=== PATIENT | female | born 1960 | race Caucasian/White ===

== ENCOUNTER 2021-12-14 13:52 | Outpatient (CLI) | payer MEDICARE, BC, SELFPAY | END 2021-12-14 13:53 | disposition home or self-care (01) | LOC: INJ CL 13:53 | PROVIDERS: PCP Family Medicine; Visit Provider Family Medicine | DX: M54.16 Radiculopathy, lumbar region (principal); M51.36 Other intervertebral disc degeneration, lumbar region | CPT/HCPCS: 62323; J0702; Q9966 ==

== ENCOUNTER 2022-02-12 06:53 | Outpatient (CLI) | payer MEDICARE, BC, SELFPAY | END 2022-02-12 06:54 | disposition home or self-care (01) | PROVIDERS: PCP Family Medicine; Visit Provider Family Medicine | DX: M53.3 Sacrococcygeal disorders, not elsewhere classified (principal) | CPT/HCPCS: 27096; J0702; Q9966 ==

== ENCOUNTER 2022-04-23 06:57 | Outpatient (CLI) | payer MEDICARE, BC, SELFPAY | END 2022-04-23 06:58 | disposition home or self-care (01) | LOC: INJ CL 06:59 | PROVIDERS: PCP Family Medicine; Visit Provider Family Medicine | DX: M53.3 Sacrococcygeal disorders, not elsewhere classified (principal) | CPT/HCPCS: 27096; J0702; Q9966 ==

== ENCOUNTER 2023-02-11 07:03 | Outpatient (CLI) | payer MEDICARE, BC, SELFPAY | END 2023-02-11 07:04 | disposition home or self-care (01) | LOC: INJ CL 07:04 | PROVIDERS: PCP Family Medicine; Visit Provider Family Medicine | DX: M51.36 Other intervertebral disc degeneration, lumbar region (principal); M54.16 Radiculopathy, lumbar region; M53.3 Sacrococcygeal disorders, not elsewhere classified | CPT/HCPCS: 27096; 62323; J0702; Q9966 ==

== ENCOUNTER 2023-07-08 07:11 | Outpatient (CLI) | payer MEDICARE, BC, SELFPAY | END 2023-07-08 07:12 | disposition home or self-care (01) | LOC: INJ CL 07:12 | PROVIDERS: PCP Family Medicine; Visit Provider Family Medicine | DX: M54.16 Radiculopathy, lumbar region (principal); M51.36 Other intervertebral disc degeneration, lumbar region | CPT/HCPCS: 62323; J0702; Q9966 ==

== ENCOUNTER 2023-12-09 07:07 | Outpatient (CLI) | payer MEDICARE, BC, SELFPAY | END 2023-12-09 07:08 | disposition home or self-care (01) | LOC: INJ CL 07:08 | PROVIDERS: PCP Family Medicine; Visit Provider Family Medicine | DX: M54.16 Radiculopathy, lumbar region (principal); M51.36 Other intervertebral disc degeneration, lumbar region | CPT/HCPCS: 62323; J0702; Q9966 ==

== ENCOUNTER 2024-05-18 07:24 | Outpatient (CLI) | payer MEDICARE, BC, SELFPAY | END 2024-05-18 07:25 | disposition home or self-care (01) | LOC: INJ CL 07:26 | PROVIDERS: PCP Family Medicine; Visit Provider Family Medicine | DX: M53.3 Sacrococcygeal disorders, not elsewhere classified (principal) | CPT/HCPCS: 27096; J0702; Q9966 ==

== ENCOUNTER 2024-06-15 07:10 | Outpatient (CLI) | payer MEDICARE, BC, SELFPAY | END 2024-06-15 07:11 | disposition home or self-care (01) | LOC: INJ CL 07:10 | PROVIDERS: PCP Family Medicine; Visit Provider Family Medicine | DX: M54.16 Radiculopathy, lumbar region (principal); M51.369 Other intervertebral disc degeneration, lumbar region without mention of lumbar back pain or lower extremity pain | CPT/HCPCS: 62323; J0702; Q9966 ==

== ENCOUNTER 2024-10-22 06:49 | Outpatient (CLI) | payer MEDICARE, BC, SELFPAY | END 2024-10-22 06:50 | disposition home or self-care (01) | LOC: INJ CL 06:49 | PROVIDERS: PCP Family Medicine; Visit Provider Family Medicine | DX: M53.3 Sacrococcygeal disorders, not elsewhere classified (principal) | CPT/HCPCS: 27096; J0702; Q9966 ==

== ENCOUNTER 2025-01-12 17:35 | Outpatient (CLI) | payer MEDICARE, BC, SELFPAY ==
--- NOTE | 2025-01-12 18:15 | MR_ITS ---
EXAM: MRI EXAMINATION OF THE RIGHT KNEE CLINICAL INFORMATION: Right knee pain. No specific injury. Osteoarthritis. Evaluate articular cartilage. TECHNICAL INFORMATION: Coronal PD and STIR. Axial PD and T2 fat saturation. Sagittal PD and PD fat saturation images acquired. INTERPRETATION: Bones: Minimal subchondral edema signal and cystic change involves the high posterior periphery of the medial femoral condyle. Patchy subchondral cystic changes of the patella. No occult fracture/stress reaction. No evidence for AVN. No other abnormal bone marrow edema pattern is identified. Ligaments and tendons: The medial collateral ligament is intact, without acute sprain or tear. The iliotibial band, fibular collateral ligament, biceps femoris tendon and popliteus tendon all are intact. The anterior cruciate ligament is intact without acute sprain or tear. The posterior cruciate ligament is intact. Extensor Mechanism: The patellar and quadriceps tendons are intact. The medial and lateral retinacula are intact. Knee Joint: There is no knee joint effusion. There is a slender small to moderate-sized popliteal cyst. There is no discrete loose body seen within the joint. Medial Compartment: There is undersurface tearing identified involving the body and posterior horn medial meniscus. No displaced flap fragment or parameniscal cyst. There is no focal chondral defect. Grade II to III chondromalacia involves the weightbearing surfaces of the medial joint compartment. Lateral Compartment: There is no evidence for discrete lateral meniscal tear. No displaced flap fragment or parameniscal cyst. There is a 1.3 x 1.1 segment of grade 3 chondromalacia involving the central surface of the lateral tibial plateau. Small adjacent segment of grade II to III chondromalacia involving the femoral condyle. Patellofemoral articulation: Broad grade 3 and IV chondromalacia involves the lateral patellar facet as well as involving the superior one third of the midline patella. Grade 3 and IV chondromalacia all along the adjacent portion of the medial facet. Predominant grade II and III chondromalacia of the midline and medial trochlear groove. CONCLUSION: 1. Undersurface tearing of the body and posterior horn medial meniscus. 2. No lateral meniscal tear. The cruciate ligaments are intact. 3. Grade II-III medial compartment chondromalacia. Lateral compartment chondromalacia includes a moderate-sized segment of grade III involvement of the tibial plateau. 4. Patellofemoral chondromalacia includes broad grade III to IV involvement with subchondral cystic changes of the patella. 5. No evidence for a knee joint effusion. There is a slender small to moderate- sized popliteal cyst. No loose body. KES Electronically signed on 01/13/2025 9:56:00 AM by Lemuel Lackey M.D.
== END 2025-01-12 17:36 | disposition home or self-care (01) ==
LOC: MRI 17:36
PROVIDERS: PCP Family Medicine; Visit Provider Physician Assistant
DX: M25.561 Pain in right knee (principal); S83.241A Other tear of medial meniscus, current injury, right knee, initial encounter; M22.41 Chondromalacia patellae, right knee; M17.11 Unilateral primary osteoarthritis, right knee
CPT/HCPCS: 73721